=== PATIENT | male | born 1960 | race Caucasian/White ===

== ENCOUNTER → 2016-08-19 | Outpatient (CLI) | payer OTHER ==
[~2016-08-19] MED LIST: ASCA500 PO; ASPCH81; BND25X PO; CARB200T PO; FLV1 PO; PRED20TA PO; SYN125 PO; VITA100C4 PO
[2016-08-19 12:30] LABS: BASO % 0.8 %; BASO ABS # 0.04 K/uL (0-0.2); COMPLETE YES; EOS % 2.5 %; HEMATOCRIT 45.2 % (42-52); IG% 0.2 %; LYMPH % 31.4 %; LYMPH ABS # 1.64 K/uL (1.2-3.4); MEAN CELL VOLUME 94.2 fL (80-100); MEAN CORPUSCULAR HEMOGLOBIN 32.5 pg (25-34); MEAN CORPUSCULAR HGB CONC 34.5 g/dl (32-36); MEAN PLATELET VOLUME 8.9 fL (7.4-10.4); MONO % 14.3 %; NEUT % 50.8 %; PLATELET COUNT 241 K/uL (130-400); WHITE BLOOD COUNT 5.23 K/uL (4.8-10.8)
[2016-08-19 13:15] LABS: ALT/SGPT 58 U/L (12-78); BLOOD UREA NITROGEN 14 mg/dl (7-18); BUN/CREATININE RATIO 13.9 (10-20); CALCIUM 9.3 mg/dl (8.5-10.1); CARBON DIOXIDE 26 mmol/L (21-32); CHLORIDE 103 mmol/L (98-107); CHOLESTEROL 225 mg/dl (0-200); CREATININE 0.99 mg/dl (0.60-1.40); GLUCOSE 100 mg/dl (70-99); POTASSIUM 4.4 mmol/L (3.5-5.1); SODIUM 137 mmol/L (136-145); TRIGLYCERIDES 93 mg/dl (0-150); VERY LOW DENSITY LIPOPROT CALC 19 mg/dl
[2016-08-19 13:25] LABS: ALB/GLOB RATIO 1.4 (0.9-2); ALKALINE PHOSPHATASE 93 U/L (45-117); AST/SGOT 32 U/L (15-37); CHOLESTEROL/HDL RATIO 3.4; HDL CHOLESTEROL 67 mg/dl; LDL CHOLESTEROL CALCULATED 139 mg/dl; THYROID STIMULATING HORMONE 0.637 uIu/ml (0.300-4.500)
== END | disposition home or self-care (01) ==
LOC: C.LABBFT 09:10
PROVIDERS: ATTEND Nurse Practitioner Family
DX: E03.9 Hypothyroidism, unspecified (principal); E78.5 Hyperlipidemia, unspecified; I10 Essential (primary) hypertension

== ENCOUNTER → 2017-03-14 | Outpatient (CLI) | payer OTHER ==
[2017-03-14 11:56] LABS: BLOOD UREA NITROGEN 15 mg/dl (7-18); BUN/CREATININE RATIO 15.7 (10-20); CALCIUM 8.8 mg/dl (8.5-10.1); CARBON DIOXIDE 28 mmol/L (21-32); CHLORIDE 105 mmol/L (98-107); CREATININE 0.93 mg/dl (0.60-1.40); GLUCOSE 100 mg/dl (70-99); HDL CHOLESTEROL 69 mg/dl; POTASSIUM 4.3 mmol/L (3.5-5.1); SODIUM 138 mmol/L (136-145)
[2017-03-14 11:58] LABS: CHOLESTEROL 221 mg/dl (0-200); CHOLESTEROL/HDL RATIO 3.2; LDL CHOLESTEROL CALCULATED 134 mg/dl; TRIGLYCERIDES 90 mg/dl (0-150); VERY LOW DENSITY LIPOPROT CALC 18 mg/dl
== END | disposition home or self-care (01) ==
LOC: C.LABBC 08:11
PROVIDERS: ATTEND Nurse Practitioner Family
DX: E78.5 Hyperlipidemia, unspecified (principal)

== ENCOUNTER → 2017-10-20 | Outpatient (CLI) | payer OTHER ==
[2017-10-20 11:25] LABS: ALBUMIN 3.8 gm/dl (3.4-5.0); ALT/SGPT 56 U/L (12-78); BLOOD UREA NITROGEN 12 mg/dl (7-18); CARBON DIOXIDE 26 mmol/L (21-32); CHOLESTEROL 215 mg/dl (0-200); CREATININE 1.01 mg/dl (0.60-1.40); GLUCOSE 108 mg/dl (70-99); POTASSIUM 4.5 mmol/L (3.5-5.1); SODIUM 135 mmol/L (136-145)
[2017-10-20 11:34] LABS: ALKALINE PHOSPHATASE 90 U/L (45-117); AST/SGOT 31 U/L (15-37); LDL CHOLESTEROL CALCULATED 129 mg/dl; TOTAL PROTEIN 6.9 gm/dl (6.4-8.2)
== END | disposition home or self-care (01) ==
LOC: C.LABBC 08:58
PROVIDERS: ATTEND Nurse Practitioner Family
DX: E04.1 Nontoxic single thyroid nodule (principal); E78.5 Hyperlipidemia, unspecified; I10 Essential (primary) hypertension

== ENCOUNTER 2024-09-11 08:37 | Observation (INO) ==
--- NOTE | 2024-08-10 10:03 | PAT Medication Instructions ---
Medication Instructions Date of Service August 10, 2024 Home Medications Medication Instructions Recorded meloxicam 15 mg tablet 15 mg PO DAILY #30 tabs 05/23/24 folic acid 1 mg tablet 1 mg PO QAM lisinopril 10 mg tablet 10 mg PO QAM meloxicam 15 mg tablet 15 mg PO DAILY multivitamin 1 tab PO DAILY pantoprazole 40 mg tablet,delayed release 40 mg PO QAM [place] 3 1 cap PO DAILY Probiotic 1 cap PO DAILY glucosamine sulf dipot chlr,msm,chond 550 mg-C 30 mg-sarah 1 mg capsule (Glucosamine Chondroitin) 1 cap PO DAILY ASK your surgeon for instructions meloxicam 15 mg tablet 15 mg PO DAILY STOP taking 2 weeks before surgery (or as soon as possible if surgery is within 2 weeks) [place] 3 1 cap PO DAILY glucosamine sulf dipot chlr,msm,chond 550 mg-C 30 mg-sarah 1 mg capsule (Glucosamine Chondroitin) 1 cap PO DAILY DO NOT take the morning of surgery folic acid 1 mg tablet 1 mg PO QAM lisinopril 10 mg tablet 10 mg PO QAM multivitamin 1 tab PO DAILY Probiotic 1 cap PO DAILY Take morning of surgery With a small sip of water, OTHERWISE NOTHING TO EAT OR DRINK AFTER MIDNIGHT: pantoprazole 40 mg tablet,delayed release 40 mg PO QAM Other Notes If you have any questions please call us at [phone] or [phone] or [phone] or [phone]
--- NOTE | 2024-08-16 10:09 | Anesthesiology Consultation ---
Date of Service August 16, 2024 Assessment & Plan (1) Encounter for pre-operative examination: - Infectious disease screening: Per assessment on 08/16/24- No known recent infectious disease contacts. URI symptoms of congestion/runny nose, sore throat started ~08/03/24. Patient states that symptoms are almost entirely resolved as of PAT visit 08/16/24. DOS 09/11/24. Symptom onset > 10 days prior to DOS. Patient advised to contact surgeon/PAT if not at baseline prior to surgery. - Outpatient joint assessment: Pt currently scheduled for inpatient pathway. If surgeon requests review for outpatient joint pathway, patient is an acceptable candidate for outpatient joint program from anesthesia standpoint pending surgeon's office assessment that patient is motivated, has good support and completes [facility] Day Joint Program preop requirements. Chart Review Chart Review: Acceptable Risk for Surgery and Patient seen in Pre Admission Testing Teaching & Discussion Pre-Anesthesia Teaching/Discussion Notes: Instructed NPO after midnight before surgery,except medications with 15 cc of water. Medication instructions provided according to the PAT guidelines. History Surgery Operation Date: 09/11/24 08:50 Proposed Procedures p Right Total Hip Arthroplasty - Wang Lu MD Height/Weight Height: 6 ft Weight: 104.6 kg Allergies Allergy/AdvReac Type Severity Reaction Status Date / Time terbinafine [From Lamisil] Allergy Intermediate Hives Verified 08/10/24 07:29 Permanent Markers Scent Allergy Severe Anaphylaxis Uncoded 08/10/24 07:29 Medications Home Medications Medication Instructions Recorded Confirmed Last Taken folic acid 1 mg tablet 1 mg PO QAM 05/23/24 08/10/24 Unknown lisinopril 10 mg tablet 10 mg PO QAM 05/23/24 08/10/24 Unknown meloxicam 15 mg tablet 15 mg PO DAILY #30 tabs 05/23/24 08/10/24 Unknown multivitamin 1 tab PO DAILY 05/23/24 08/10/24 Unknown pantoprazole 40 mg tablet,delayed 40 mg PO QAM 05/23/24 08/10/24 Unknown release [place] 3 1 cap PO DAILY 08/10/24 08/10/24 Unknown Probiotic 1 cap PO DAILY 08/10/24 08/10/24 Unknown glucosamine sulf dipot 1 cap PO DAILY 08/10/24 08/10/24 Unknown chlr,msm,chond 550 mg-C 30 mg-sarah 1 mg capsule (Glucosamine Chondroitin) Past Medical History Medical History Arthritis of right hip GERD (gastroesophageal reflux disease) History of seizure 1995, single episode Previously on tegretol x 15 years (discontinued 5+ years ago) Hypertension Osteoarthritis of right knee Exercise / Class Metabolic Activity II 4-5 Yardwork/Stairs/Walk up hill Past Family History Family History Father Heart disease Myocardial infarction Mother Breast cancer Lung cancer Past Surgical History Surgical History H/O lumbosacral spine surgery L4-5, L5-S1 (2010) History of nasal surgery Deviated septum (Early ) History of tonsillectomy and adenoidectomy (1967) Hx of colonoscopy (10/2023) Past Anesthesia History No Hx of Anesthesia Complications and No Family Hx of Anesthesia Complications History of PONV No Hx of PONV and No Hx of Motion Sickness Social History Smoking Status: Never smoker Do You Dip or Chew Tobacco: No Hx Alcohol Use: Yes Alcohol type: beer alcohol intake frequency: holidays/special occasions only Hx Substance Use: No substance use type: does not use Review of Systems Patient denies chest pain, shortness of breath, dyspnea on exertion, fever, chills, cough, wheezing, palpitations. Physical Exam Vital Signs BP 131/82 P 62 TEMP 98.2 SP02 97%RA RESP 16 Physical Full cervical extension range of motion. Full TMJ range of motion. TMD 3 finger breaths Mallampati Score II Dentition: intact Lungs: clear throughout to auscultation Cardiac: regular rate and rhythm, no murmurs noted Spine: normal Carotid arteries: negative bruit Extremities: no LE edema Lab Results Anesthesia Preop Results Results Anesthesia Widget: WBC 6.71 K/ul (4.8-10.8) 08/16/24 Hgb 15.0 g/dl (14.0-18.0) 08/16/24 Hct 42.7 % (42.0-52.0) 08/16/24 Plt 246 K/uL (130-400) 08/16/24 Na 137 mmol/L (136-145) 08/16/24 K 4.2 mmol/L (3.5-5.1) 08/16/24 Cl 104 mmol/L (98-107) 08/16/24 CO2 27 mmol/L (21-32) 08/16/24 BUN 15 mg/dl (6-23) 08/16/24 Creat 0.82 mg/dl (0.6-1.4) 08/16/24 Glucose Level 129 mg/dl (70-99(Fasting)) H 08/16/24 PT 10.9 Seconds (9.0-12.0) 08/16/24 PTT 27 Seconds (21-31) 08/16/24 INR 1.0 (0.9-1.1) 08/16/24 Blood Type A Positive 08/16/24 Antibody Screen NEGATIVE 08/16/24 Testing Electrocardiogram Date: 08/16/24 SB at 55bpm. "Otherwise normal ECG" Chest X-Ray Date: 08/16/24 Findings: There are no confluent pulmonary infiltrates. The heart size is within normal limits. No pleural effusion or pneumothorax is seen. There is no definite pulmonary nodule. No fracture is noted. No foreign body is seen Impression: No active disease
--- NOTE | 2024-09-06 09:41 | History & Physical Report ---
Date of Service September 06, 2024 Assessment & Plan (1) Arthritis of right hip: 64-year-old gentleman with a history of spine surgery in the past with advanced right hip arthritis. Is failed conservative treatment. His arthritis has progressed both clinically and radiographically over the past year significan tly. He would like to have his hip fixed. Plan: We are going to take him to the operating room and do a right total hip replacement the risks Mente this procedure were explained and he understands. Informed consent is obtained. That we will use aspirin for DVT prophylaxis. He is planned to be discharged to home with home health. Will keep in the hospital overnight. Hopeful discharge after therapy postop day 1. (2) Degenerative arthritis of knee, bilateral: (3) GERD (gastroesophageal reflux disease): (4) Hypertension: (5) History of lumbar laminectomy: History of Present Illness Chief Complaint: . Right hip and leg pain. Primary Care Provider: Rogers Hernandez MD . The patient is a 64-year-old gentleman from [facility] Who presents for treatment of his right hip and leg pain. Still started about a year ago. No particular injury. Describes gotten worse over the past year. He had an intra-articular injection which helped him for about a day or 2 and the second 1 that helped him for about 2 weeks. He has been followed and managed by Dr. Enciso and Dr. Weir was left at this point. Scribe buttock pain groin pain thigh pain and knee pain. Get some intermittent numbness. Does have history of back surgery done by Dr. Elizabeth gallardo at [facility] in the past. No history of DVT or PE. He has some really bad days where he limps and has trouble walking at all. Allergies Allergy/AdvReac Type Severity Reaction Status Date / Time terbinafine [From Lamisil] Allergy Intermediate Hives Verified 08/10/24 07:29 Permanent Markers Scent Allergy Severe Anaphylaxis Uncoded 08/10/24 07:29 Home Medications Medication Instructions Recorded Confirmed Type folic acid 1 mg tablet 1 mg PO QAM 05/23/24 08/10/24 History lisinopril 10 mg tablet 10 mg PO QAM 05/23/24 08/10/24 History meloxicam 15 mg tablet 15 mg PO DAILY #30 tabs 05/23/24 08/10/24 Rx multivitamin 1 tab PO DAILY 05/23/24 08/10/24 History pantoprazole 40 mg tablet,delayed 40 mg PO QAM 05/23/24 08/10/24 History release [place] 3 1 cap PO DAILY 08/10/24 08/10/24 History Probiotic 1 cap PO DAILY 08/10/24 08/10/24 History glucosamine sulf dipot 1 cap PO DAILY 08/10/24 08/10/24 History chlr,msm,chond 550 mg-C 30 mg-sarah 1 mg capsule (Glucosamine Chondroitin) Past Med/Surg History Problem List Encounter for pre-operative examination Degenerative arthritis of knee, bilateral GERD (gastroesophageal reflux disease) Hypertension History of lumbar laminectomy Lumbar radiculopathy, acute Osteoarthritis of right knee Arthritis of right hip Muscle strain of right gluteal region Acute lateral meniscus tear of right knee Medical History Arthritis of right hip History of seizure 1995, single episode Previously on tegretol x 15 years (discontinued 5+ years ago) Osteoarthritis of right knee Hypertension GERD (gastroesophageal reflux disease) Surgical History History of nasal surgery Deviated septum (Early ) History of tonsillectomy and adenoidectomy (1967) Hx of colonoscopy (10/2023) H/O lumbosacral spine surgery L4-5, L5-S1 (2010) Family History Father Heart disease Myocardial infarction Mother Breast cancer Lung cancer Social History Smoking Status: Never smoker Second Hand Exposure: No; Do You Dip or Chew Tobacco: No; Hx Alcohol Use: Yes Alcohol type: beer Alcohol Intake Frequency: 4 or More x per/Week Hx Substance Use: No Preferred Language: Samoan Communication Ability: Effective Accounting Methods Analyst Required: No Beliefs That Will Affect Care: None marital status: Current Living Situation: Spouse current occupational status: employed 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 Physical Exam . Physical examination reveals a pleasant healthy middle-age male. His examination of the right hip and leg reveal patient walks with a slight bit of a limp. Leg lengths appear pretty equal on exam. He has stiffness with hip motion. He can internally rotate to neutral at best. Negative straight leg raise. He is neurologically intact. Is got some bony prophy around the medial side of his knee. Minimal knee effusion. Constitutional WD/WN, vitals as above Respiratory normal respiratory effort, lungs clear to auscultation Cardiovascular RRR, no murmur, no edema Gastrointestinal (Abdomen) normal bowel sounds, soft, nontender, no hepatosplenomegaly Results & Data Results & Data Laboratory Results . Diagnostic Findings . X-rays of the right hip were reviewed. Shows advanced right hip arthritis. This has progressed significantly since his most recent films. He is got c omplete loss of his joint space. Got cystic changes on both sides of the joint. PG Care Time/CCT Total # of Minutes Spent Total Time Spent with Patient: Total time spent is greater than 50% in coordination of care (as documented) at patient's floor/unit and/or counseling patient: Coding Level of Care Code None Diagnoses Arthritis of right hip M16.11 Degenerative arthritis of knee, bilateral M17.0 GERD (gastroesophageal reflux disease) K21.9 Hypertension I10 History of lumbar laminectomy Z98.898
[~2024-09-11 08:37] MED LIST changes: -ASCA500 PO; -ASPCH81; -BND25X PO; -CARB200T PO; -FLV1 PO; -PRED20TA PO; +ROPIVACAINE 0.5% 5 MG/ML 30 ML VIAL ONE; -SYN125 PO; -VITA100C4 PO
[2024-09-11] MEDS ORDERED: MIDAZOLAM HCL 1 MG/ML 2ML VIAL ONE ×2 (09:19)
[2024-09-11] MEDS ORDERED: ONDANSETRON INJ 2 MG/ML 2 ML VIAL ONE (09:20)
[2024-09-11] MEDS ORDERED: LIDOCAINE 2% 2 ML VIAL/AMP(20MG/ML) INFIL ONE (09:20)
[2024-09-11] MEDS ORDERED: fentaNYL citrate PF 100 MCG/2 ML VIAL ONE (09:20)
[2024-09-11] MEDS ORDERED: PROPOFOL IV EMULSION 10 MG/ML 20 ML VIAL IV ONE ×2 (09:20→11:28)
[2024-09-11] MEDS: LR 60ML/HR IV SCH (09:26)
[2024-09-11] MEDS: LR 500ML BOLUS, THEN 15ML/HR IV SCH (09:33)
[2024-09-11] MEDS ORDERED: ePHEDrine sulfate 50 MG/ML AMP IV PRN (09:39)
[2024-09-11] MEDS ORDERED: ONDANSETRON INJ 2 MG/ML 2 ML VIAL IV PRN ×2 (09:39→13:06)
[2024-09-11] MEDS ORDERED: ATROPINE SULFATE 0.1 MG/ML 10ML SYR IV PRN (09:39)
[2024-09-11] MEDS ORDERED: fentaNYL citrate PF 100 MCG/2 ML VIAL IV PRN (09:39)
[2024-09-11] MEDS ORDERED: HYDROmorphone INJ 1 MG/ML SYRINGE IV PRN (09:39)
[2024-09-11] MEDS: ACETAMINOPHEN 500 MG TAB PO SCH ×2 (09:43→17:06)
[2024-09-11] MEDS: CeleBREX 200 MG CAP PO SCH (09:44)
[2024-09-11] MEDS: FAMOTIDINE 20 MG TAB PO SCH (09:44)
[2024-09-11] MEDS: METOCLOPRAMIDE HCL 10 MG TABLET PO SCH (09:44)
[2024-09-11] MEDS: dexAMETHasone**PF** 10 MG/ML VIAL IV SCH (09:45)
[2024-09-11] MEDS: TRANEXAMIC ACID 1,000 MG **IV Pre-op IV SCH (10:10)
--- NOTE | 2024-09-11 10:11 | History & Physical Bridge Note ---
Date of Service September 11, 2024 History & Physical Bridge Note I have examined the patient, reviewed the History & Physical and in the interval since the performance of the History & Physical I have noted the following changes of clinical significance: no changes noted
[2024-09-11] MEDS: ceFAZolin 2000MG 2,000 MG/15 ML SYR IV SCH ×2 (10:30→17:07)
[2024-09-11] MEDS ORDERED: ePHEDrine sulfate 50 MG/ML AMP ONE (10:49)
[2024-09-11] MEDS ORDERED: WATER, STERILE FOR INJ 10 ML VIAL ONE (10:49)
[2024-09-11] MEDS ORDERED: PHENYLEPHRINE HCL 10 MG/ML VIAL ONE (10:51)
[2024-09-11] MEDS: BUPIVACAINE/EPINEPHRINE 0.5% MPF 1:200,000 30 ML VIAL ONE (11:34)
--- NOTE | 2024-09-11 12:02 | Operative Report ---
PG Post Operative Report Pre & Post Diagnosis Operation Date: 09/11/24 10:40 Pre-Op Diagnosis: Right Hip Degenerative Joint Disease Post-Op Diagnosis: Right Hip Degenerative Joint Disease I identified the patient and participated in the time-out.: Yes Procedure Operation Date: 09/11/24 10:40 Actual Procedures p Right Total Hip Arthroplasty, Uncemented(Right) - Wang Lu MD Surgeon Wang Lu MD Extruder Operator Horizontal Renan Little PA-C Estimated Blood Loss 100 Findings Consistent with Post-Op Diagnosis Specimens Right femoral head sent for pathology. Anesthesia Type Spinal MAC Complications none Disposition Accompanied Patient To Recovery: No Indications The patient is a 64-year-old gentleman said a long history of right leg and lower extremity problems. He had extensive back issues as well. Over time he has developed increased pain discomfort right hip. Been through extensive conservative treatment which become less successful over time. X-rays show advanced progressive right hip arthritis. He elected proceed with total hip arthroplasty. Description of Procedure Operative implants consist of: 1 Biomet G7 size 58 mm acetabular shell. 2. 6.5 cancellous acetabular screws 135 mm in length and 1 of 30 mm length. 3. [place] hole hand ii cutter. 4. Highly cross-linked polyethylene liner with a 58 mm outer diam and 40 mm inner diameter. 5. DePuy Corail size 13 femoral stem. 6. +8.5/40 mm ceramic articular ball. The patient was taken to the op room, identified, placed on the operating table in the supine position. All conductors were appropriately padded. IV antib iotics fibra anesthesia team. Spinal anesthetic had been implemented holding area. The patient was then placed in the left lateral cubitus position. An axillary roll was placed. A stool Birkett position was used for positioning. The right hip and leg were then prepped and draped in usual sterile fashion. A posterolateral approach to the right hip was then performed to a curvilinear incision centered over the greater trochanter. Sharp dissection Through subcutaneous tissue dental of the IT band gluteal fascia. The IT band gluteal fascia was sized longitudinally in line with skin incision. The underlying greater bursa was excised. The piriformis and external rotators along with the posterior hip joint capsule were then released from the posterior aspect the hip as a single layer. Great care was taken throughout the day to protect the sciatic nerve at all times. The hip was internally rotated and dislocated. A femoral neck osteotomy cut was made with Final Cut 10 mm above the lesser trochanter. Femoral head was removed and sent for pathology. The femur was retracted anteriorly. Attention then drawn to the acetabulum. The acetabular labrum was excised. The pulmonary fat was excised. Sequential reaming the acetabular was then performed again with a size 47 progressing up to 57. A 58 mm reamer was then used and a 58 mm Biomet G7 acetabular shell was then placed in about 40 degrees lateral opening and 20 degrees of anteversion. It was fixed with two 6.5 screws. A trial liner was placed. Attention drawn the femur. The proximal femur was entered with a [employer] cutter followed by canal finder. I then broached beginning with size 8. His cancellous envelope was quite healthy and good and sturdy. We broached up to a 13 and it was extremely tight. I elected not to broach any further. We trialed the hip and all components look to be appropriately positioned and the hip was fully stable regardless of neck size. We elect to use a +8.5 is this what it templated out to and leg lengths seemed most appropriate. We will elect to place these implants. All trial implants were removed. An apex hole hand ii cutter was placed. Highly cross-linked polyethylene liner was placed. Size 13 KLA femoral stem was impacted in position. A +8.5/40 mm ceramic articular ball was placed. Hip was located and once again found to be stable. Attention drawn toward closing. Wounds irrigated coconuts pulsatile lavage solution. We did inject locally with 60 cc of absent Marcaine with epinephrine. Posterior capsule and external rotators then repaired through drill holes in the posterior trochanter with #2 Tycron suture. The IT band gluteal fascia then closed in 1 PDS suture in a running fashion with subcutaneous tissue then closed with 2 layers of the deep layer #1 Vicryl suture and subcutaneous tissues with 2-0 Dexon suture in a buried interrupted fashion. The skin was closed skin rica. Leg was then cleaned and dried and a sterile dressing with Xeroform, 4 fours, sterile ABD pad and foam tape was applied. The patient then transferred to the recovery room in stable condition. Patient tolerated the procedure well and there were no complications. Renan Little, my physician retail event assistant, was present for the entire procedure. His assistance was essential and required for appropriate patient positioning, prepping and draping, surgical exposure, performing the technical details of the operation, placement the implants, closure of the wound, and placement of the sterile bandage. I attest to the content of the Intraoperative Record and any orders documented therein. Any exceptions are noted below.
--- NOTE | 2024-09-11 12:42 | XRay Report ---
XR hip 1V RT w pelvis HISTORY: 64 years-old Male IN PACU - Post Surgical right hip arthroplasty COMPARISON: 07/09/2024 TECHNIQUE: AP view of the pelvis with crosstable lateral view of the right hip FINDINGS: Mild osteoarthritis of the left hip. Satisfactory alignment of the right hip arthroplasty with latera l skin rica, expected postoperative soft tissue swelling with deep tissue air. No acute fracture. IMPRESSION: Satisfactory alignment of the right hip arthroplasty. ACT 112: Negative or not required by law. The above report was generated using voice recognition software. It may contain grammatical, syntax o r spelling errors. Electronically signed by: Suleman Cline M.D. 09/11/2024 12:41 PM
[2024-09-11] MEDS ORDERED: diphenhydrAMINE Capsule 25 MG CAP PO PRN (13:06)
[2024-09-11] MEDS ORDERED: HYDROmorphone INJ 0.5 MG/0.5 ML SYR IV PRN (13:06)
[2024-09-11] MEDS ORDERED: ALUMINUM/MAGNESIUM SUSP 30 ML UDC PO PRN (13:06)
[2024-09-11] MEDS ORDERED: bisacodyL 10 MG SUPP PR PRN (13:06)
[2024-09-11] MEDS ORDERED: NALOXONE HCL 0.4 MG/1 ML VIAL/CARP IV PRN (13:06)
[2024-09-11] MEDS ORDERED: MAGNESIUM HYDROXIDE SUSP 30 ML UDC PO PRN (13:06)
[2024-09-11] MEDS ORDERED: METOCLOPRAMIDE HCL INJ 5 MG/ML 2 ML VIAL IV PRN (13:06)
--- NOTE | 2024-09-11 13:06 | Anesthesiology Progress Note ---
Date of Service September 11, 2024 Anesthesia Post Procedure Vital Signs Vital Signs: Temp Pulse Pulse Resp BP Pulse Ox O2 Del Method 09/11/24 12:50 87 17 118/80 94 Room Air 09/11/24 12:35 89 13 126/83 93 Room Air 09/11/24 12:20 36.7 C 85 16 113/74 95 Room Air 09/11/24 12:10 87 16 136/84 94 Room Air 09/11/24 12:00 103 H 15 115/75 94 Room Air 09/11/24 11:50 36 C L 100 H 19 128/82 98 Room Air 09/11/24 09:12 36.6 C 62 20 112/75 96 Room Air Pain Intensity Right Hip: Pain Intensity: 2 Transfer of Care Handoff Completed per policy Notes Mental Status: alert / awake / arousable and participated in evaluation Patient Amnestic to Procedure: Yes Nausea / Vomiting: adequately controlled Pain: adequately controlled Airway Patency, RR, SpO2: stable & adequate BP & HR: stable & adequate Hydration State: stable & adequate Anesthetic Complications: no major complications apparent and Pt Satisfied with anesthetic care
[2024-09-11] MEDS ORDERED: ACETAMINOPHEN 500 MG TAB PO SCH (14:00)
--- OUTSIDE RECORDS SUMMARY | 2024-09-11 14:04 | External Medical Summary | Summary of Care ---
Author Name Unknown Organization [facility] Address [address] [place] [address] Phone [phone] Care Team Providers Care Sack Cleaner Name Role Phone Rogers Hernandez MD Primary Care Provider + Encounter Details Date Type Department Care Team (Late st Contact Info) Description 08/21/2024 Population Health External Data Unspecified Department Allergies Active Allergy Reactions Criticality Noted Date Comments Environmental Anaphylaxis High 01/20/2010 Pt reports he is allergic to the odor of permanent markers. Does carry Epi pen with him. Terbinafine Hcl Hives 10/26/2011 Hands and chest. pt had an issue with the pills, not the creams documented as of this encounter (statuses as of 08/21/2024) Medications ASPIRIN 81 MG PO TABS one tab by mouth daily Active FOLIC ACID 1 MG PO TABS one tab by mouth daily Active MENS MULTI VITAMIN & MINERAL PO TABS one tab by mouth daily Active Probiotic Product (PROBIOTIC & ACIDOPHILUS EX ST) CapsuleIndicati ons:Well adult exam Take 1 Cap by mouth three times a day with meals. Active EPINEPHrine, anaphylaxis, (EPI-PEN) 0.3 MG/0.3ML SOAJ injection Inject 0.3 mg into a large muscle once. For a severe reaction: Inject in outer thigh following instructions on package and go to the Emergency room. Active Lisinopril 20 MG Oral Tablet (Prinivil)Indic ations:HTN, goal below 140/90 Take 1 Tablet by mouth in the morning. 90 Tablet 3 5 Active Pantoprazole Sodium 40 MG Oral Tablet Delayed Release (Protonix)Indic ations:Gastroes ophageal reflux disease without esophagitis TAKE 1 TAB BY MOUTH DAILY 30 MINUTES BEFORE THE FIRST MEAL OF THE DAY. DO NOT CRUSH, SPLIT OR CHEW 90 Tablet 3 5 Active documented as of this encounter (statuses as of 08/21/2024) Active Problems Problem Noted Date Diagnosed Date Prediabetes 09/23/2023 Alcohol abuse 04/06/2022 Essential hypertension with goal blood pressure less than 140/90 02/25/2016 Well adult exam 01/08/2016 Overview (04/11/2024): I saw dad (Pa). Step Mom-alive (my pt). 11/22 colon WNL karen 10y 04/22 MIL summer 2021. 05/13 colonoscopy WNL Former smoker, stopped smoking in distant past 0 08/25/2015 Overview (08/25/2015): Quit around 2004 Psoriasis 08/25/2015 Overview (08/25/2015): Hands-MTX in past, off of it since 09/2013 Nontoxic uninodular goiter 07/21/2012 Hypothyroidism Overview (04/11/2024): nodule. Followed with endocrinology. Reports benign FNA in past. Stable 09/19 US from 13. Thyroid nodule Overview (09/04/2015): 09/16 stable nodules on US. Lumbar stenosis documented as of this encounter (statuses as of 08/21/2024) Resolved Problems Problem Noted Date Diagnosed Date Resolved Date Grand mal status 04/07/2023 04/07/2023 Overview (08/25/2015): 05/1996-1st & only grand mal seizure--[facility] treated Elevated LFTs 11/11/2015 03/06/2020 Overview (11/11/2015): NEED eveal documented as of this encounter (statuses as of 08/21/2024) Immunizations Name Administration Dates Next Due COVID-19 mRNA, LNP-s, No Pre serve, 2-Dose Series ([employer]) 08/18/2021,11/27/2020,11/06/2020 Seasonal Influenza, PF, 6 M & above, IM , (FluLaval or Fluzone) 09/08/2018 TDAP (age 10 and older)(Boostrix) 10/03/2020 TDAP, Age 7 and older, IM (Adacel) 10/30/2020,,07/12/2011 Zoster Vaccine Recombinant (Shingrix) 06/09/2021 ,03/09/2021 documented as of this encounter Social History Tobacco Use Types Packs/Day Years Used Date Smoking Tobacco: Former Cigars Smokeless Tobacco: Never Comments:about 30+ pk yr. hx . Alcohol Use Standard Drinks/Week Comments Yes 0 (1 standard drink = 0.6 oz pur e alcohol) 02/18 cut back 3d/ wk PHQ-2 Answer Date Recorded PHQ Adult Total Score 0 04/11/2024 Hunger Vital Sign Answer Date Recorded Within the past 12 months, y ou worried that your food would run out before you got the money to buy more. Never true 04/07/20 23 Within the past 12 months, t he food you bought just didn't last and you didn't have money to get more. Never true 04/07/2023 Childcare Answer Date Recorded Do you feel overwhelmed with taking care of a child, family member or friend? No 04/07/2023 Does your family need help f inding childcare? (Household - for ages 0-17 years) Not on file 04/07/2023 Clothing Answer Date Recorded Have you been unable to get clothing when it was really needed? No 04/07/2023 Is your family able to get c lothes or diapers when needed? (Household - for ages 0-17 years) Not on file 04/07/2023 Personal Safety Answer Date Recorded Do you feel unsafe or have concerns for your saf ety? No 04/07/2023 Do you have concerns for you r family's safety? (Household - for ages 0-17 years) Not on file 04/07/2023 Utilities Answer Date Recorded Do you have trouble paying y our heating, water, or electric bill? No 04/07/2023 Is your family able to pay t he heat, water, or electric bill? (Household - for ages 0-17 years) Not on file 04/07/2023 Does your family have access to good internet? (Household - for ages 0-17 years) Not on file 04/07/2023 Employment Status Answer Date Recorded Are you unemployed or without regular income? No 04/07/2023 Does the household have a re lar source of income? (Household - for ages 0-17 years) Not on file 04/07/2023 Social Connections Answer Date Recorded How often do you feel lonely or isolated from th ose around you? Never 04/07/2023 Financial Resource Strain Answer Date R ecorded Do you have any trouble payi ng for your medications, or do you think you might in the future? No 04/07/2023 Does your family have troubl e paying for medicine? (Household - for ages 0-17 years) Not on file 04/07/2023 Transportation Needs Answer Date Record ed READ ONLY Do you have troubl e getting a ride to medical visits or work? Never True 04/07/2023 Does your family have a hard time getting a ride to doctors visits? (Household - for ages 0-17 years) Not on file 04/07/2023 Has lack of transportation k ept you from medical appointments, meetings, work, or from getting things needed for daily living? Check all that apply. (Adult - for ages 18 years and over) Not on file 04/07/2023 Do you (or your family) have trouble finding or paying for a ride (transportation)? (Household - for ages 0-17 years) Not on file 04/07/2023 Housing Stability Answer Date Recorded Do you currently live in a s helter or have no steady place to sleep at night? No 04/07/2023 READ ONLY Do you think you a re at risk of becoming homeless? No 04/07/2023 Does your family worry about paying for your home or becoming homeless? (Household - for ages 0-17 years) Not on file 0 04/07/2023 Are you homeless or worried that you might be in the future? (Adult - for ages 18 years and over) Not on file 3 Are you (or your family) shon eless or worried that you might be in the future? (Household - for ages 0-17 years) Not on file Food Insecurity Answer Date Recorded Do you need food for this week? No 04/07/2023 Are you able to get enough f ood for your family? (Household - for ages 0-17 years) Not on file 04/07/2023 Does your family need food t his week? (Household - for ages 0-17 years) Not on file 04/07/2023 Do you always have enough fo od for your family? 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 4 y [employer]. Not on file Not on file Not on file documented as of this encounter Plan of Treatment Upcoming Encounters Date Type Department Care Team (Late st Contact Info) Description 04/29/2025 8:20 AM EDT Office Visit Family Practice [facility] [address] [id number] Rogers Hernandez MD [address] [place] [phone] Scheduled Procedures Name Priority Associated Diagnoses Date/Ti me COLONOSCOPY FLEXIBLE PROXIMA L DIAGNOSTIC Recall Screening for colon cancer Health Maintenance Due Date Last Done Comments Pneumococcal Vaccine: 50+ Years (1 of 2 - PCV) 1981 Cologuard 2007 Sigmoidoscopy 2007 Fecal Occult Blood Test 01/12/2012 01/11/2011, 01/26 COVID-19 Vaccine ( season) 2024 08/18/2021, 11/27/2020, 11/06/2020 Influenza Vaccine (FLU shot) (#1) 2024 09/08/2018 Depression Screening 04/11/2025 04/11/2024 GFR 04/11/2025 04/11/2024, 09/0 01/2023, 04/15/2022, Additional history exists HbA1c 04/11/2025 04/11/2024, 0 01/2023, 04/15/2022, Additional history exists Albumin/Creatinine Ratio 04/15/2025 04/15/2022 Lipid Panel 04/07/2028 04/07/2023, 08/0 12/2019, 11/11/2015, Additional history exists DTap/Tdap Vaccines (5 - Td or Tdap) 10/30/2030 10/30/2020, 10/03/2020, 11/29/2012, Additional history exists Colonoscopy 11/21/2033 11/22/2023, 10/31, 05/25/2013 Colorectal Cancer Screening 11/21/2033 Hepatitis C Screening Completed 02/25/2016 Zoster Vaccines Completed 06/09/2021, 03/09/2021 HPV (Gardasil) Vaccine Aged Out No lo nger eligible based on patient's age to complete this topic Hepatitis B Vaccine Aged Out No longe r eligible based on patient's age to complete this topic MENINGOCOCCAL (MENACTRA/MENVEO) Aged Out No longer eligible based on patient's age to complete this topic documented as of this encounter Medical Devices Not on filedocumented as of this encounter Advance Directives * Full Code (Latest Code Status on File) Date Activated Date Inactivated Comments 11/13/2011 11:36 AM 11/15/2011 3:20 PM This order reflects the patients wishes and were consensually agreed upon. Question Answer Comments Discussion of Advance Directives occurred with: Patient Does the patient have a Living Will? No Does the patient have Health Care Power of Attor king? No Care Teams Sack Cleaner Relationship Specialty Start Date End Date Rogers Hernandez MD [address] [place] [id number] PCP - General Family Medicine 09/08/18 documented as of this encounter
--- OUTSIDE RECORDS SUMMARY | 2024-09-11 14:04 | External Medical Summary | Summary of Care ---
Author Name Unknown Organization [facility] Address [address] [facility] [place] [address] Phone [phone] Care Team Providers Care Ballast Regulator Operator Name Role Phone Rogers Hernandez MD Primary Care Provider + Encounter Details Date Type Department Care Team (Late st Contact Info) Description 08/20/2024 Population Health External Data Unspecified Department Allergies Active Allergy Reactions Criticality Noted Date Comments Environmental Anaphylaxis High 01/20/2010 Pt reports he is allergic to the odor of permanent markers. Does carry Epi pen with him. Terbinafine Hcl Hives 10/26/2011 Hands and chest. pt had an issue with the pills, not the creams documented as of this encounter (statuses as of 08/20/2024) Medications ASPIRIN 81 MG PO TABS one [...] as of this encounter (statuses as of 08/20/2024) Active Problems Problem Noted Date Diagnosed Date [...] as of this encounter (statuses as of 08/20/2024) Resolved Problems Problem Noted Date Diagnosed Date Resolved Date Grand mal status 04/07/2023 04/07/2023 Overview (08/25/2015): 05/1996-1st & only grand mal seizure--[facility] treated Elevated LFTs 11/11/2015 03/06/2020 Overview (11/11/2015): NEED eveal documented as of this encounter (statuses as of 08/20/2024) Immunizations Name Administration Dates Next Due COVID-19 mRNA, LNP-s, No Pre serve, 2-Dose Series ([employer]) 08/18/2021,11/27/2020,11/06/2020 Seasonal Influenza, PF, 6 M & [...] Industry Job 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 No Care Teams Ballast Regulator Operator Relationship Specialty Start Date End Date Rogers Hernandez MD [address] [id number] PCP - General Family Medicine 09/08/18 documented as of this encounter
[2024-09-11] MEDS: traMADol HCL 50 MG TABLET PO PRN (16:31)
[2024-09-11] MEDS: ASCORBIC ACID 500 MG TAB PO SCH (16:32)
[2024-09-11] MEDS: KETOROLAC 30 MG/ML VIAL IV SCH (17:06)
[2024-09-11] MEDS: TRANEXAMIC ACID / 0.7% NACL 1,000 MG/100 ML BAG IV SCH (17:07)
[2024-09-11] MEDS ORDERED: SENNA 8.6 MG TAB PO SCH (21:00)
[2024-09-11] MEDS: ASPIRIN 81 MG ECTAB PO SCH (21:08)
[2024-09-11] MEDS: SENNA 8.6 MG TAB PO SCH (21:08)
[2024-09-11] MEDS: DOCUSATE SODIUM 100 MG CAP PO SCH (21:08)
[2024-09-12 07:06] LABS: Basophils # (auto) 0.04 K/uL (0.00-0.20); Basophils % (auto) 0.4 %; Eosinophils # (auto) 0.03 K/uL (0.00-0.50); Eosinophils % (auto) 0.3 %; Hematocrit (blood only) 39.2 % (42.0-52.0); Hemoglobin 13.5 g/dl (14.0-18.0); Immature Granulocytes # (auto) 0.05 K/uL (0.01-0.20); Immature Granulocytes % (auto) 0.4 %; Lymphocytes # (auto) 1.89 K/uL (1.20-3.40); Lymphocytes % (auto) 16.5 %; Mean Corpuscular Hemoglobin 32.1 pg (25.0-34.0); Mean Corpuscular Hgb Conc 34.4 g/dL (32.0-36.0); Mean Corpuscular Volume 93.3 fL (80.0-100.0); Mean Platelet Volume 8.5 fL (9.4-12.4); Monocytes # (auto) 1.05 K/uL (0.11-0.59); Monocytes % (auto) 9.2 %; Neutrophils # (auto) 8.36 K/uL (1.40-6.50); Neutrophils % (auto) 73.2 %; Platelet Count 230 K/uL (130-400); RDW Coefficient of Variation 12.1 % (11.5-14.5); RDW Standard Deviation 41.1 fL (36.4-46.3); White Blood Count 11.42 K/ul (4.8-10.8)
[2024-09-12 07:16] LABS: Potassium 4.1 mmol/L (3.5-5.1)
[2024-09-12 07:21] LABS: BUN Creatinine Ratio 14.1 (10-20)
[2024-09-12] MEDS: dexAMETHasone 10 MG in SYRINGE 0 ML IV SCH (08:52)
[2024-09-12] MEDS: ADVANCED PROBIOTIC 625 MG CAPSULE PO SCH (08:53)
[2024-09-12] MEDS: OMEGA-3 (PURIFIED FISH OIL) 1 GM CAP PO SCH (08:53)
[2024-09-12] MEDS: lisinopril 10 MG TAB PO SCH (08:53)
[2024-09-12] MEDS: PANTOprazole 40 MG TAB PO SCH (08:54)
[2024-09-12] MEDS: MULTIVITAMIN TAB PO SCH (08:54)
[2024-09-12] MEDS: FOLIC ACID 1 MG TAB PO SCH (08:54)
[2024-09-12] MEDS: TAMSULOSIN HCL 0.4 MG CAP PO SCH (08:54)
[2024-09-12] MEDS ORDERED: NON-FORMULARY MEDICATION (Multivitamin tablet) PO SCH (09:00)
[2024-09-12] MEDS: GLUCOSAMINE SULFATE 500 MG CAP PO SCH (09:18)
--- NOTE | 2024-09-12 11:47 | Orthopedic Progress Note ---
Date of Service September 12, 2024 Assessment & Plan (1) Status post right hip replacement: Status post right total hip arthroplasty. Plan: Overall he is doing quite well today with good pain control right hip. He will work with physical therapy later this morning to work on ambulation and range of motion exercises. He is currently on aspirin for DVT prophylaxis. He can be discharged home later this morning pending formal physical therapy evaluation and recommendations. His prescriptions were sent to pharmacy was able to pick him up. He had no questions about his prescriptions. He will follow-up with Dr. Lu in 2 weeks for continued postoperative management or sooner if needed. He verbalized understanding and agrees with this plan. Graciela Sequeira was seen and evaluated this morning resting comfortably no apparent distress. He notes that his pain is well-controlled to his right hip. He notes he has been up and out of bed with no significant issues. He has yet to work with physical therapy this morning. He denies any concerns with surgical incision site. Denies any active bleeding, discharge, or signs infection. He denies any other concerns today. Review of Systems All systems reviewed & are unremarkable except as noted in HPI & below. Physical Exam . On physical examination of the right hip, his dressings are in place, clean, intact. No signs of active bleeding, discharge, or signs of infection. No tenderness to palpation. His leg is out in full extension. Limited range of motion secondary to postoperative stiffness and soreness. Calf soft nontender to palpation. Negative Homans' sign. Intact plantarflexion and dorsiflexion to the right ankle. +2 DP and PT pulses. Less than 2-second capillary refill. Normal sensation. Neurovascular intact. Results & Data Results & Data Laboratory Results . Diagnostic Findings . Hip/Pelvis X-Ray 09/11/24 11:54 XR hip 1V RT w pelvis HISTORY: 64 years-old Male IN PACU - Post Surgical right hip arthroplasty COMPARISON: 07/09/2024 TECHNIQUE: AP view of the pelvis with crosstable lateral view of the right hip FINDINGS: Mild osteoarthritis of the left hip. Satisfactory alignment of the right hip arthroplasty with lateral skin rica, expected postoperative soft tissue swelling with deep tissue air. No acute fracture. IMPRESSION: Satisfactory alignment of the right hip arthroplasty. ACT 112: Negative or not required by law. The above report was generated using voice recognition software. It may contain grammatical, syntax or spelling errors. Electronically signed by: Suleman Cline M.D. 09/11/2024 12:41 PM PG Care Time/CCT Total # of Minutes Spent Total Time Spent with Patient: Total time spent is greater than 50% in coordination of care (as documented) at patient's floor/unit and/or counseling patient: Coding Level of Care Code 78443 Post Operative Follow-Up Diagnoses Status post right hip replacement Z96.641
--- NOTE | 2024-09-12 11:49 | Discharge Summary ---
Date of Service September 12, 2024 Admission HPI (Per Admitting) . The patient is a 64-year-old gentleman from [facility] Who presents for treatment of his right hip and leg pain. Still started about a year ago. No particular injury. Describes gotten worse over the past year. He had an intra-articular injection which helped him for about a day or 2 and the second 1 that helped him for about 2 weeks. He has been followed and managed by Dr. Enciso and Dr. Weir was left at this point. Scribe buttock pain groin pain thigh pain and knee pain. Get some intermittent numbness. Does have history of back surgery done by Dr. Elizabeth gallardo at [facility] in the past. No history of DVT or PE. He has some really bad days where he limps and has trouble walking at all. Admission Exam (Per Admitting) . Physical examination reveals a [facility] healthy middle-age male. His examination of the right hip and leg reveal patient walks with a slight bit of a limp. Leg lengths appear pretty equal on exam. He has stiffness with hip motion. He can internally rotate to neutral at best. Negative straight leg raise. He is neurologically intact. Is got some bony prophy around the medial side of his knee. Minimal knee effusion. Principal Diagnosis Same as "Discharge Diagnosis" noted below under Discharge Instructions. Discharge Exam . On physical examination of the right hip, his dressings are in place, clean, intact. No signs of active bleeding, discharge, or signs of infection. No tenderness to palpation. His leg is out in full extension. Limited range of motion secondary to postoperative stiffness and soreness. Calf soft nontender to palpation. Negative Homans' sign. Intact plantarflexion and dorsiflexion to the right ankle. +2 DP and PT pulses. Less than 2-second capillary refill. Normal sensation. Neurovascular intact. Discharge Data Procedures Performed Operation Date: 09/11/24 10:40 Actual Procedures p Right Total Hip Arthroplasty, Uncemented(Right) - Wang Lu MD Hospital Course (1) Status post right hip replacement: On September 11, 2024 Hua arrived at [facility] underwent a right total hip arthroplasty performed by Dr. Lu with no complications. He had a spinal anesthetic. Postoperatively, he was started on aspirin for DVT prophylaxis and transferred to the general orthopedic floor in stable condition. His hospital course was uneventful. On postoperative day #1, his vital signs were stable and his pain was well-controlled. He participated well with physical therapy working on ambulation and range of motion exercises. He was then discharged home in stable condition. He will follow-up with Dr. Lu in 2 weeks for continued postoperative management or sooner if needed. PG Care Time/CCT Total # of Minutes Spent Total Time Spent with Patient: Total time spent is greater than 50% in coordination of care (as documented) at patient's floor/unit and/or counseling patient: Discharge Plan Discharge Items Patient Disposition: Home - Home Health Services Reason For Visit: Osteoarthritis hip right Discharge Diagnosis: Right Hip Replacement Activity: Per Instructions section Activity Comment: Follow/Obey hip precautions at all times. Weightbearing: Full weightbearing Weightbearing Comment: Weightbear as tolerated obeying hip precautions at all times. Non-emergency contact: Surgeon Call non-emergency contact if: you have any medication questions Follow-up/Referrals: Rogers Hernandez MD [Primary Care Provider] - Diet: Regular Addtl Attending Provider Instructions: ACTIVITY RECOMMENDATIONS: Diet: * You may resume previous diet. Physical Therapy: * Aggressive physical therapy is not usually needed. You will learn to take care of yourself safely and walk. * Follow the "Hip Precautions Instructions." * In some cases, the social welfare clerk at the hospital will arrange to have a therapist come to your house for the first couple of weeks to help you learn these skills. * You need to practice on your own or with the help of a family member as needed. * When you learn these skills, most of the therapy can be done on your own. Home Exercise: * You were shown a series of exercises in the hospital. Do these exercises three to four times each day including the exercises you were shown in physical therapy. Walking: * Get up and walk several times each day. For the first four weeks, try not to stand or walk for more than one hour at a time. If you do stand or walk for more than one hour, you will not hurt anything, but your leg will likely swell. * As you feel comfortable, you may change from the walker or crutches to a cane and then to independent walking. MEDICATIONS: New Medicine: * You will likely be taking one or more of these medicines: 1. Tramadol - Take, as directed, when you need it, every six hours to control your pain. 2. Aspirin - Thins your blood to lessen the chance of forming a blood clot. * The most common side effects of pain medicine and iron are nausea and consti pation. If nausea or constipation is too much of a problem or if you have any questions about your new medicines or doses, call [facility] at . We will try to help you manage these issues. "VERY IMPORTANT TO READ AND REVIEW" Pain: * The immediate post-operative period after hip replacement surgery is often quite painful. * You are given a prescription for pain medicine. You should take it, as directed, when you need it, especially before physical therapy and before going to bed. Pain that interferes with sleep is very common and can last several months. * You will likely need pain medicine for the first two to four weeks. It will not stop all of the pain. The pain will lessen and as you feel better, you may change to milder pain medicine such as Tylenol. * The most common side effects of pain medicine are nausea and constipation, so don't take more than you need. SPECIAL CARE INSTRUCTIONS: TEDs/Elastic Stockings: * The white elastic stockings help limit swelling and prevent blood clots from forming in your legs. The more you wear them, the more they work. * Wear them for six weeks. Incision Site Care: * Remove dressing postoperative day 2 and then shower. Keep direct shower pressure off the incision site. * After showering, cover rica with dry gauze and change daily or more frequently if the dressing is getting saturated with drainage. * May completely stop using bandage if wound is dry and no drainage * [place] are removed between 2 and 3 weeks post-op. If your follow-up appointment is made before 2 weeks, please have your appointment re- scheduled. It is too early to remove the rica. Prevention of Infection: * Take antibiotics one hour before any dental cleaning, dental work, urological procedure, gastrointestinal procedure or any invasive surgery in order to prevent your new joint from getting infected. * You may get the antibiotics from the doctor performing the procedure or you may call our office at before and we will call in a prescription to the pharmacy of your choice. Things to Watch For: * Drainage from the incision site that occurs more than one week after your surgery. * Severely increased leg pain or swelling. * Increased redness at the incision site. * Fever above 102 degrees Fahrenheit. * Unusual chest pain or shortness of breath. * Unusual pain or burning with urination. Call [facility] at with any of the above problems or if you have any questions about your medicines or recovery. FOLLOW UP VISIT: Make an appointment to see your doctor for approximately two weeks after surgery for a progress check and staple removal by calling the office at . Pending Studies at Discharge: No Stand-Alone Forms: My [facility], Smoking Cessation Medications and DC Order Prescriptions: Continued folic acid 1 mg tablet 1 mg PO QAM lisinopril 10 mg tablet 10 mg PO QAM multivitamin Tablet 1 tab PO DAILY pantoprazole 40 mg tablet,delayed release (DR/EC) 40 mg PO QAM tramadol 50 mg tablet 50 - 100 mg PO Q6 PRN (Reason: pain) Qty: 40 0RF Rx Instructions: Take as needed for pain ondansetron 4 mg tablet,disintegrating 4 mg PO Q8 PRN (Reason: nausea) Qty: 20 1RF Rx Instructions: Take as needed for nausea ketorolac 10 mg tablet 10 mg PO Q6 5 Days Qty: 20 0RF Rx Instructions: Take 4 times per day with food for 5 days to lessen pain and swelling. sennosides [Senokot] 8.6 mg tablet 8.6 mg PO BID 14 Days Qty: 28 0RF Rx Instructions: Take two times a day to prevent/treat constipation acetaminophen [Tylenol Extra Strength] 500 mg tablet 1,000 mg PO TID 30 Days Qty: 180 0RF Rx Instructions: Take 3 times per day to lessen pain aspirin [Dulce Maria Low Dose Aspirin] 81 mg tablet,delayed release (DR/EC) 81 mg PO BID 45 Days Qty: 90 0RF Rx Instructions: Take to prevent blood clots. tamsulosin [Flomax] 0.4 mg capsule 0.4 mg PO DAILY Qty: 7 0RF Rx Instructions: Begin night BEFORE surgery to prevent urinary retention Glucosamine Chondroitin 550-30-1 mg Capsule 1 cap PO DAILY [place] 3 1 cap PO DAILY Probiotic 1 cap PO DAILY Discontinued meloxicam 15 mg tablet 15 mg PO DAILY Qty: 30 2RF Claudia/Other Patient Handouts: Hip Arthroscopy: After Surgery, Hip Precautions Admission Data Admit Date/Time: 09/11/24 11:54 Attending Provider: Wang Lu Admit Provider: Wang Lu Primary Care Provider: Rogers Hernandez Other Providers: [facility],Home Health Other Interventions: Discharge Summary Assessment (RN) Last Done: 09/12/24 09:34
== END 2024-09-12 10:43 | disposition home health service (06) ==
LOC: ASU 08:37 → 3E 08:37